=== PATIENT | female | born 1980 | race Caucasian/White ===

== ENCOUNTER → 2017-09-16 | Outpatient (CLI) | payer BC | END | disposition home or self-care (01) | LOC: C.PAPS 09:31 | PROVIDERS: ATTEND Obstetrics & Gynecology | DX: Z01.419 Encounter for gynecological examination (general) (routine) without abnormal findings (principal) ==

== ENCOUNTER → 2017-10-07 | Outpatient (CLI) | payer BC ==
--- NOTE | 2017-10-07 16:36 | DIAGNOSTIC IMAGING REPORT ---
PELVIC ULTRASOUND, TRANSABDOMINAL AND TRANSVAGINAL HISTORY: DYSPAREUNIA IN FEMALE COMPARISON: Pelvic ultrasound 10/05/2016. FINDINGS: Uterus: 8.2 x 4.6 x 3.4 cm. A few small nabothian cysts. Endometrial stripe: 7 mm in thickness. Right ovary: Normal in size and demonstrates normal color flow. A few small follicles/cysts. Left ovary: Normal in size and demonstrates normal color flow. A few small follicles/cysts. Miscellaneous:No pelvic free fluid. IMPRESSION: No significant abnormality identified within the pelvis. Electronically signed by: Ash Turner M.D. 10/07/2017 4:35 PM Dictated Date/Time: 10/07/2017 4:33 PM
== END | disposition home or self-care (01) ==
LOC: C.ULTR 15:28
PROVIDERS: ATTEND Obstetrics & Gynecology
DX: N94.10 Unspecified dyspareunia (principal)

== ENCOUNTER → 2017-10-21 | Outpatient (CLI) | payer BC | END | disposition home or self-care (01) | LOC: C.LAB1850 14:43 | PROVIDERS: ATTEND Obstetrics & Gynecology | DX: N64.52 Nipple discharge (principal) ==